=== PATIENT | male | born 1965 | race Caucasian/White ===

== ENCOUNTER 2016-07-24 08:14 | Day surgery (SDC) | payer OTHER ==
[2016-07-23 09:37] VITALS: BMI 31.6
[2016-07-24 08:31] VITALS: TEMP 96.9
[2016-07-24] MEDS ORDERED: LIDOCAINE 1% 20 ML VIAL (10MG/ML) FOR IV START INTRADERMA ONE (08:42)
[2016-07-24] MEDS ORDERED: LACTATED RINGERS 1,000 ML IV SCH (09:00)
[2016-07-24] MEDS ORDERED: MIDAZOLAM 2 MG/2 ML VIAL ONE (09:30)
[2016-07-24] MEDS ORDERED: BUPIVACAINE (PF) 0.5% 30 ML VIAL ONE (09:30)
[2016-07-24] MEDS ORDERED: TRIAMCINOLONE ACETONIDE 40 MG/ML 1 ML VIAL ONE (09:30)
[2016-07-24] MEDS ORDERED: fentaNYL (PF) 50 MCG/ML 2 ML AMP ONE (09:30)
--- NOTE | 2016-07-24 09:45 | P.PCN ---
Date of Procedure: 07/24/16 Surgeon: Escobar Jenkins Pathology: none sent Condition: stable Disposition: PACU Description of Procedure: Pre-operative diagnosis: 1- Bilateral occipital neuralgia Post Operative Diagnosis: 1- Bilateral occipital neuralgia Procedure: Bilateral occipital nerve block ANESTHESIA: Local with 1% lidocaine; conscious sedation EBL: Minimal PROCEDURE INDICATION: The patient with neck pain and headache secondary to bilateral occipital neuralgia and has failed conservative management. No use of blood thinners today. PROCEDURE DESCRIPTION / TECHNIQUE: The patient was seen and identified in the preoperative area. Risks, benefits, complications, and alternatives were discussed with the patient (including but not limited to incomplete pain relief , bleeding, infection, nerve damage, and allergies to medications), the patient agreed to proceed with the procedure and signed the consent after all questions were answered. Patient was taken to the OR and time out was completed to verify proper patient , position, laterality of pain, and allergies. Pt was placed in the sitting position. IV was started. Vital signs remained stable throughout the procedure. Conscious sedation was used during the procedure to decrease patients anxiety. The cervical area and bilateral occipital areas were prepped in the usual sterile fashion. Critical pause was taken. The right occipital ridge was palpated and was then accessed with a 25 G needle. Then after negative aspiration, 3 ml of the total 6 ml block solution containing 4 ml of PF Bupivacaine 0.5% and Kenalog 80 mg was injected. Needle was withdrawn intact. The entire procedure was then repeated on the left side exactly as above. Needle was withdrawn intact and there were no acute complications. DISPOSITION / PLANS: The patient was placed in a supine position and transferred to the recovery area in a stable condition for observation and was discharged from the recovery room after meeting discharge criteria. Home discharge instructions given to the patient by the staff. The patient was reexamined prior to discharge and there were no issues. The patient will schedule a follow up injection in approximately 4-6 weeks.
[2016-07-24] MEDS ORDERED: IV FLUID CONTINUATION 1,000 ML IV ONE (09:47)
[2016-07-24 09:50] VITALS: RESP 16
[2016-07-24 10:07] VITALS: BP 127/72; PULSE 80
== END 2016-07-24 10:31 | disposition home or self-care (01) ==
LOC: ORPAIN 08:14
PROVIDERS: ATTEND Anesthesiology
DX: M54.81 Occipital neuralgia (principal); G89.29 Other chronic pain; Z79.1 Long term (current) use of non-steroidal anti-inflammatories (NSAID); Z79.899 Other long term (current) drug therapy
CPT/HCPCS: 64405; J2250; J3301; J3010

== ENCOUNTER 2017-02-14 09:45 | Emergency (ER) | payer MEDICARE, OTHER ==
[2017-02-14 09:55] VITALS: BP 164/86; PULSE 70; RESP 18; TEMP 97.4
[2017-02-14] MEDS ORDERED: predniSONE 50 MG TAB PO STA (10:23)
[2017-02-14] MEDS ORDERED: diphenhydrAMINE 25 MG CAP PO STA (10:23)
[2017-02-14] MEDS ORDERED: FAMOTIDINE 20 MG TAB PO STA (10:23)
--- NOTE | 2017-02-14 10:30 | ED ---
Skin/Abscess/FB HPI - General Chief complaint: Skin/Abscess/Foreign Body Stated complaint: allergic reaction Time Seen by Provider: 02/14/17 10:00 Source: patient, RN notes reviewed Mode of arrival: ambulatory Limitations: no limitations - History of Present Illness Initial comments: This is a 51-year-old male who states she's had an erythematous itchy rash for the past 3 days. He states was placed back on his neck is extremities and chest. He does not recall any exposure to medications Social detergents ever softeners or any foreign substances. He has no prior history of this. He states his been so bad that he keeps him up at night now. He believes feeling of hours sleep last night. Additionally he states he had an upset stomach since this occurred. He denies any chest pain shortness breath fevers chills nausea vomiting sweats or other symptoms. He does state he recently but new [employer] clothing but he has washed them. MD complaint: rash - Related Data Home Medications Medication Instructions Recorded Confirmed ALPRAZolam [Xanax] 0.5 mg PO BID 05/21/16 07/24/16 Baclofen [Lioresal] 10 mg PO TID 05/21/16 07/24/16 Ibuprofen [Motrin] 600 mg PO BID 05/21/16 07/24/16 Meclizine [Antivert] 25 mg PO BID PRN 05/21/16 07/24/16 Previous Rx's Medication Instructions Recorded Famotidine [Pepcid] 20 mg PO BID #10 tablet 02/14/17 hydrOXYzine HCL [Atarax] 25 mg PO TID PRN #15 tab 02/14/17 predniSONE 20 mg PO BID #10 tab 02/14/17 Allergies Allergy/AdvReac Type Severity Reaction Status Date / Time No Known Allergies Allergy Verified 02/14/17 09:55 Review of Systems ROS Statement: Those systems with pertinent positive or pertinent negative responses have been documented in the HPI. ROS Other: All systems not noted in ROS Statement are negative. Past Medical History Additional Past Medical History / Comment(s): hx injury to neck- experiencing constant headache, neck, lt shoulder pain with numbness to lt hand and pain lower back, diverticulitis, growth on parotid gland History of Any Multi-Drug Resistant Organisms: None Reported Past Surgical History: Bowel Resection Additional Past Surgical History / Comment(s): bowel resection with colostomy and then reversal of colostomy Past Anesthesia/Blood Transfusion Reactions: No Reported Reaction Past Psychological History: No Psychological Hx Reported Smoking Status: Current some day smoker Past Alcohol Use History: Occasional Past Drug Use History: Marijuana - Past Family History Mother Family Medical History: Cancer Additional Family Medical History / Comment(s): liver General Exam - General Exam Comments Initial Comments: This a well-developed well-nourished awake alert oriented 3 male Limitations: no limitations General appearance: alert, in no apparent distress Head exam: Present: atraumatic, normocephalic, normal inspection Eye exam: Present: normal appearance, PERRL, EOMI. Absent: scleral icterus, conjunctival injection, periorbital swelling ENT exam: Present: normal exam, mucous membranes moist Neck exam: Present: normal inspection, full ROM, other (No stridor JVD or bruits ). Absent: tenderness, meningismus, lymphadenopathy Respiratory exam: Present: normal lung sounds bilaterally. Absent: respiratory distress, wheezes, rales, rhonchi, stridor Cardiovascular Exam: Present: regular rate, normal rhythm, normal heart sounds. Absent: systolic murmur, diastolic murmur, rubs, gallop, clicks GI/Abdominal exam: Present: soft, normal bowel sounds. Absent: distended, tenderness, guarding, rebound, rigid Extremities exam: Present: full ROM, normal capillary refill. Absent: tenderness Back exam: Absent: tenderness Neurological exam: Present: alert, oriented X3, CN II-XII intact Psychiatric exam: Present: normal affect, normal mood Skin exam: Present: warm, dry, intact, rash, other (Hive-like reaction to the face and scalp neck chest and extremities.) Course Vital Signs 02/14/17 09:52 Temperature 97.4 F L Pulse Rate 70 Respiratory 18 Rate Blood Pressure 164/86 O2 Sat by Pulse 99 Oximetry Medical Decision Making - Medical Decision Making The presentation is consistent with ALLERGIC reaction to an unknown etiology. Patient will be placed on appropriate medications he was cautioned about exposure to heat. He is follow-up with his doctor and return when necessary Disposition Clinical Impression: Hives of unknown origin Disposition: HOME SELF-CARE Condition: Good Instructions: Urticaria (ED) Additional Instructions: Cool compresses to affected areas, [id number] Benadryl 25 mg every 6 hours as needed. Prescriptions: Famotidine [Pepcid] 20 mg PO BID #10 tablet hydrOXYzine HCL [Atarax] 25 mg PO TID PRN #15 tab PRN Reason: Itching predniSONE 20 mg PO BID #10 tab Referrals: Nonstaff,Physician [Primary Care Provider] - 1-2 days
== END 2017-02-14 10:35 | disposition home or self-care (01) ==
LOC: EC 09:45
DX: L50.9 Urticaria, unspecified (principal); F17.200 Nicotine dependence, unspecified, uncomplicated; Z79.1 Long term (current) use of non-steroidal anti-inflammatories (NSAID); Z79.899 Other long term (current) drug therapy
CPT/HCPCS: 99283; J7512

== ENCOUNTER 2017-04-27 14:27 | Emergency (ER) | payer MEDICARE, OTHER ==
[2017-04-27 14:36] VITALS: BP 145/85; RESP 20; TEMP 98.1
[2017-04-27] MEDS ORDERED: FAMOTIDINE 20 MG TAB PO STA (14:53)
[2017-04-27] MEDS ORDERED: predniSONE 20 MG TAB PO STA (14:53)
[2017-04-27] MEDS ORDERED: ALBUTEROL NEBULIZED 2.5 MG/3 ML INHALATION STA (14:53)
[2017-04-27] MEDS ORDERED: hydrOXYzine HCL 25 MG TAB PO STA (14:54)
--- NOTE | 2017-04-27 15:00 | ED ---
Skin/Abscess/FB HPI - General Chief complaint: Skin/Abscess/Foreign Body Stated complaint: allergies Time Seen by Provider: 04/27/17 14:49 Source: patient, RN notes reviewed Mode of arrival: ambulatory Limitations: no limitations - History of Present Illness Initial comments: 52-year-old male presents emergency Department chief complaint of urticaria. Patient states he did have his ongoing issue and which she suggested have ALLERGY testing but he states that he does not want to have the skin ALLERGY testing because he fears that he will have worse reactions. Patient states his been seen in emergency department for this in the past given his medication which helped. States more recently his been having issues raised that increase hives states occasionally has shortness of breath. He states is nonacute reaction states this is been going on for weeks. Patient denies any new medications, soaps, lotions or detergents. Patient states he currently taking Zyrtec and hydrocortisone cream - Related Data Home Medications Medication Instructions Recorded Confirmed ALPRAZolam [Xanax] 0.5 mg PO BID 05/21/16 07/24/16 Baclofen [Lioresal] 10 mg PO TID 05/21/16 07/24/16 Ibuprofen [Motrin] 600 mg PO BID 05/21/16 07/24/16 Meclizine [Antivert] 25 mg PO BID PRN 05/21/16 07/24/16 Previous Rx's Medication Instructions Recorded Famotidine [Pepcid] 20 mg PO BID #10 tablet 02/14/17 hydrOXYzine HCL [Atarax] 25 mg PO TID PRN #15 tab 02/14/17 predniSONE 20 mg PO BID #10 tab 02/14/17 Famotidine [Pepcid] 20 mg PO BID #30 tablet 04/27/17 hydrOXYzine HCL [Atarax] 25 mg PO TID PRN #15 tab 04/27/17 predniSONE 50 mg PO DAILY #5 tab 04/27/17 Allergies Allergy/AdvReac Type Severity Reaction Status Date / Time No Known Allergies Allergy Verified 04/27/17 14:36 Review of Systems ROS Statement: Those systems with pertinent positive or pertinent negative responses have been documented in the HPI. ROS Other: All systems not noted in ROS Statement are negative. Past Medical History Additional Past Medical History / Comment(s): hx injury to neck- experiencing constant headache, neck, lt shoulder pain with numbness to lt hand and pain lower back, diverticulitis, growth on parotid gland History of Any Multi-Drug Resistant Organisms: None Reported Past Surgical History: Bowel Resection Additional Past Surgical History / Comment(s): bowel resection with colostomy and then reversal of colostomy Past Anesthesia/Blood Transfusion Reactions: No Reported Reaction Past Psychological History: No Psychological Hx Reported Smoking Status: Current every day smoker Past Alcohol Use History: Occasional Past Drug Use History: Marijuana - Past Family History Mother Family Medical History: Cancer Additional Family Medical History / Comment(s): liver General Exam Limitations: no limitations General appearance: alert, in no apparent distress Head exam: Present: atraumatic, normocephalic, normal inspection Eye exam: Present: normal appearance, PERRL, EOMI. Absent: scleral icterus, conjunctival injection, periorbital swelling ENT exam: Present: normal exam, normal oropharynx, mucous membranes moist, TM's normal bilaterally, normal external ear exam Neck exam: Present: normal inspection, full ROM. Absent: tenderness, meningismus, lymphadenopathy Respiratory exam: Present: wheezes (faint wheeze). Absent: normal lung sounds bilaterally, respiratory distress, rales, rhonchi, stridor Cardiovascular Exam: Present: regular rate, normal rhythm, normal heart sounds. Absent: systolic murmur, diastolic murmur, rubs, gallop, clicks Neurological exam: Present: alert, oriented X3, CN II-XII intact Skin exam: Present: warm, dry, intact, normal color, rash, urticaria Course Vital Signs 04/27/17 14:34 Temperature 98.1 F Pulse Rate 86 Respiratory 20 Rate Blood Pressure 145/85 O2 Sat by Pulse 98 Oximetry Medical Decision Making - Medical Decision Making 52-year-old male presented for ALLERGIC reaction. Patient has a chronic urticaria issue. I did explain to him he can have blood ALLERGY testing with his primary care physician or collar tailor. He states he will follow up for this. Patient is no acute distress. He was given a breathing treatment, steroids, Atarax and Pepcid. Patient be discharged with Atarax and Pepcid to continue with his hydrocortisone cream. Return parameters discussed. Disposition Clinical Impression: Urticaria Disposition: HOME SELF-CARE Condition: Stable Instructions: Urticaria (ED) Additional Instructions: Please return to the Emergency Department if symptoms worsen or any other concerns. Prescriptions: Famotidine [Pepcid] 20 mg PO BID #30 tablet hydrOXYzine HCL [Atarax] 25 mg PO TID PRN #15 tab PRN Reason: Itching predniSONE 50 mg PO DAILY #5 tab Referrals: Courtney Delgado MD [Primary Care Provider] - 1-2 days Time of Disposition: 15:00
[2017-04-27 15:39] VITALS: PULSE 90
== END 2017-04-27 15:50 | disposition home or self-care (01) ==
LOC: EC 14:27
DX: L50.9 Urticaria, unspecified (principal); F17.200 Nicotine dependence, unspecified, uncomplicated; Z79.1 Long term (current) use of non-steroidal anti-inflammatories (NSAID); Z79.899 Other long term (current) drug therapy
CPT/HCPCS: 94640; 99283; J7512

== ENCOUNTER 2017-07-22 03:14 | Emergency (ER) | payer MEDICARE, OTHER ==
[2017-07-22 03:21] VITALS: RESP 18; TEMP 99.3
[2017-07-22] MEDS ORDERED: methylPREDNISolone SOD SUCCI 125 MG/2 ML VIAL IM ONE (03:39)
--- NOTE | 2017-07-22 03:43 | ED ---
General Adult HPI - General Chief complaint: Recheck/Abnormal Lab/Rx Stated complaint: hives Time Seen by Provider: 07/22/17 03:34 Source: patient, RN notes reviewed Mode of arrival: ambulatory Limitations: no limitations - History of Present Illness Initial comments: Patient is a pleasant 52-year-old male presenting to the emergency Department with rash. Onset was a couple of days ago. Patient has had similar symptoms multiple times previously over the past several months. Patient has been on steroids 3 or 4 times. Last steroids was around 6 weeks ago. Patient states he did have some palpitations earlier today that he attributes to being miserable and not been able to sleep. No chest pain. No difficulty in breathing. Patient has seen several physicians for this and has had blood work. Patient has also seen an entry level automotive technician. - Related Data Home Medications Medication Instructions Recorded Confirmed ALPRAZolam [Xanax] 0.5 mg PO BID 05/21/16 07/24/16 Baclofen [Lioresal] 10 mg PO TID 05/21/16 07/24/16 Ibuprofen [Motrin] 600 mg PO BID 05/21/16 07/24/16 Meclizine [Antivert] 25 mg PO BID PRN 05/21/16 07/24/16 Previous Rx's Medication Instructions Recorded Famotidine [Pepcid] 20 mg PO BID #10 tablet 02/14/17 hydrOXYzine HCL [Atarax] 25 mg PO TID PRN #15 tab 02/14/17 predniSONE 20 mg PO BID #10 tab 02/14/17 Famotidine [Pepcid] 20 mg PO BID #30 tablet 04/27/17 hydrOXYzine HCL [Atarax] 25 mg PO TID PRN #15 tab 04/27/17 predniSONE 50 mg PO DAILY #5 tab 04/27/17 methylPREDNISolone Dose Pack 24 mg PO DAILY #1 tab 07/22/17 [Medrol Dose Pack] Allergies Allergy/AdvReac Type Severity Reaction Status Date / Time No Known Allergies Allergy Verified 07/22/17 03:21 Review of Systems ROS Statement: Those systems with pertinent positive or pertinent negative responses have been documented in the HPI. ROS Other: All systems not noted in ROS Statement are negative. Constitutional: Denies: fever Eyes: Denies: eye pain ENT: Denies: ear pain Respiratory: Denies: cough, dyspnea Cardiovascular: Reports: palpitations (Resolved). Denies: chest pain Endocrine: Denies: fatigue Gastrointestinal: Denies: abdominal pain Genitourinary: Denies: dysuria Musculoskeletal: Denies: back pain Skin: Reports: rash, pruritus Past Medical History Additional Past Medical History / Comment(s): hx injury to neck- experiencing constant headache, neck, lt shoulder pain with numbness to lt hand and pain lower back, diverticulitis, growth on parotid gland, urticaria. History of Any Multi-Drug Resistant Organisms: None Reported Past Surgical History: Bowel Resection Additional Past Surgical History / Comment(s): bowel resection with colostomy and then reversal of colostomy, Past Anesthesia/Blood Transfusion Reactions: No Reported Reaction Past Psychological History: No Psychological Hx Reported Smoking Status: Current every day smoker Past Alcohol Use History: Occasional Past Drug Use History: Marijuana - Past Family History Mother Family Medical History: Cancer Additional Family Medical History / Comment(s): liver General Exam Limitations: no limitations General appearance: alert, in no apparent distress Head exam: Present: atraumatic Eye exam: Present: normal appearance ENT exam: Present: normal oropharynx Respiratory exam: Present: normal lung sounds bilaterally Cardiovascular Exam: Present: regular rate, normal rhythm GI/Abdominal exam: Present: soft. Absent: tenderness Neurological exam: Present: alert Psychiatric exam: Present: normal affect, normal mood Skin exam: Present: urticaria (Patient has diffuse urticarial rash) Course Vital Signs 07/22/17 03:17 Temperature 99.3 F Pulse Rate 114 H Respiratory 18 Rate Blood Pressure 139/80 O2 Sat by Pulse 97 Oximetry EKG Findings - EKG Comments: EKG Findings:: Normal sinus rhythm 92. SC 160. QRS 106. QT 348. QTC 4:30 P left axis. Incomplete right bundle-branch block. No acute ST change. Disposition Clinical Impression: Urticaria Disposition: HOME SELF-CARE Condition: Stable Instructions: Urticaria (ED) Additional Instructions: Please follow-up with your doctor and entry level automotive technician in the next day or 2 for recheck. Return for difficulty in breathing, swelling of the throat or tongue or mouth, worsening symptoms or other concerns. Continue Zyrtec and Pepcid. Prescriptions: methylPREDNISolone Dose Pack [Medrol Dose Pack] 24 mg PO DAILY #1 tab Referrals: Courtney Delgado MD [Primary Care Provider] - 1-2 days Time of Disposition: 03:43
[2017-07-22 03:58] VITALS: BP 146/78; PULSE 83
== END 2017-07-22 03:58 | disposition home or self-care (01) ==
LOC: EC 03:14
DX: L50.9 Urticaria, unspecified (principal); R00.2 Palpitations; F17.200 Nicotine dependence, unspecified, uncomplicated; Z79.899 Other long term (current) drug therapy
CPT/HCPCS: 93005; 99283; 96372; J2930

== ENCOUNTER 2017-09-08 11:08 | Emergency (ER) | payer OTHER ==
--- NOTE | 2017-09-08 11:43 | ED ---
General Adult HPI - General Chief complaint: Skin/Abscess/Foreign Body Stated complaint: Hives Time Seen by Provider: 09/08/17 11:19 Source: patient, RN notes reviewed Mode of arrival: ambulatory Limitations: no limitations - History of Present Illness Initial comments: 52-year-old male presents to the emergency department for chief complaint of hives. Patient says this has been ongoing for the past 8 months. He has seen an healthcare management consultant and was told he is not ALLERGIC to anything. He has not seen a buckle wire inserter. Patient has been taking Zyrtec and Pepcid. Patient had an ALLERGY shot about 6 weeks ago and would like another. Patient discussed following up with a buckle wire inserter as well as an healthcare management consultant. Patient states he has also had some congestion along with the hives. Patient denies any swelling of the lips or throat. Patient denies any shortness of breath. Patient denies any recent fevers. - Related Data Home Medications Medication Instructions Recorded Confirmed ALPRAZolam [Xanax] 0.5 mg PO BID 05/21/16 07/24/16 Baclofen [Lioresal] 10 mg PO TID 05/21/16 07/24/16 Ibuprofen [Motrin] 600 mg PO BID 05/21/16 07/24/16 Meclizine [Antivert] 25 mg PO BID PRN 05/21/16 07/24/16 Previous Rx's Medication Instructions Recorded Famotidine [Pepcid] 20 mg PO BID #10 tablet 02/14/17 hydrOXYzine HCL [Atarax] 25 mg PO TID PRN #15 tab 02/14/17 predniSONE 20 mg PO BID #10 tab 02/14/17 Famotidine [Pepcid] 20 mg PO BID #30 tablet 04/27/17 hydrOXYzine HCL [Atarax] 25 mg PO TID PRN #15 tab 04/27/17 predniSONE 50 mg PO DAILY #5 tab 04/27/17 methylPREDNISolone Dose Pack 24 mg PO DAILY #1 tab 07/22/17 [Medrol Dose Pack] hydrOXYzine HCL [Atarax] 25 mg PO TID PRN #20 tab 09/08/17 predniSONE 50 mg PO DAILY #5 tablet 09/08/17 Allergies Allergy/AdvReac Type Severity Reaction Status Date / Time No Known Allergies Allergy Verified 09/08/17 11:13 Review of Systems ROS Statement: Those systems with pertinent positive or pertinent negative responses have been documented in the HPI. ROS Other: All systems not noted in ROS Statement are negative. Past Medical History Additional Past Medical History / Comment(s): hx injury to neck- experiencing constant headache, neck, lt shoulder pain with numbness to lt hand and pain lower back, diverticulitis, growth on parotid gland, urticaria. diverticulitis History of Any Multi-Drug Resistant Organisms: None Reported Past Surgical History: Bowel Resection Additional Past Surgical History / Comment(s): bowel resection with colostomy and then reversal of colostomy, Past Anesthesia/Blood Transfusion Reactions: No Reported Reaction Past Psychological History: No Psychological Hx Reported Smoking Status: Current every day smoker Past Alcohol Use History: Occasional Past Drug Use History: Marijuana - Past Family History Mother Family Medical History: Cancer Additional Family Medical History / Comment(s): liver General Exam Limitations: no limitations Head exam: Present: atraumatic, normocephalic, normal inspection ENT exam: Present: normal exam, normal oropharynx, mucous membranes moist, other (congestion noted) Neck exam: Present: normal inspection Respiratory exam: Present: normal lung sounds bilaterally. Absent: respiratory distress, wheezes, rales, rhonchi, stridor Cardiovascular Exam: Present: regular rate, normal rhythm, normal heart sounds. Absent: systolic murmur, diastolic murmur, rubs, gallop, clicks Skin exam: Present: warm, dry, rash, urticaria, other (Erythematous plaques resembling Urticaria present on the limbs and torso.). Absent: cyanosis, diaphoretic Course Vital Signs 09/08/17 11:13 Temperature 97.3 F L Pulse Rate 77 Respiratory 96 H Rate Blood Pressure 127/68 O2 Sat by Pulse 95 Oximetry Medical Decision Making - Medical Decision Making 52-year-old male presents to the emergency department for a chief complaint of urticaria. Patient states this has been ongoing for the past 8 months and has been accompanied by congestion. Denies any swelling of the lips or throat or shortness of breath. Patient has seen an healthcare management consultant and had a negative exam. He was told he is not ALLERGIC to anything. Patient has not yet seen a buckle wire inserter for this. Patient last had a shot of Solu-Medrol about 6 weeks ago. Patient states this helped him and he would like another as well as an oral course of prednisone. Vitals are within normal limits and as follows: Temp 97.3. pulse 77, BP 127/68, pulse ox 95. Patient was given a shot of Solu- Medrol in the emergency department. He was given a prescription for Atarax and prednisone. He is to follow up with dermatology and or healthcare management consultant/primary care provider in one to 2 days. He will return to the emergency Department if he notices any swelling of the lips or throat or has difficulty breathing. Disposition Clinical Impression: Urticaria Disposition: HOME SELF-CARE Condition: Good Instructions: Urticaria (ED) Additional Instructions: Please follow up with healthcare management consultant and buckle wire inserter in one to 2 days. Please take steroids as directed as well as Atarax. Please return to the Emergency Department if symptoms worsen or do not improve. Prescriptions: hydrOXYzine HCL [Atarax] 25 mg PO TID PRN #20 tab PRN Reason: Itching predniSONE 50 mg PO DAILY #5 tablet Referrals: Courtney Delgado MD [Primary Care Provider] - 1-2 days Erlin Jenkins MD [STAFF PHYSICIAN] - 1-2 days
[2017-09-08] MEDS ORDERED: methylPREDNISolone SOD SUCCI 125 MG/2 ML VIAL IM ONE (11:47)
[2017-09-08 12:15] VITALS: BP 122/68; PULSE 80; RESP 18; TEMP 98
== END 2017-09-08 12:15 | disposition home or self-care (01) ==
LOC: EC 11:08
DX: L50.9 Urticaria, unspecified (principal); R09.81 Nasal congestion; F17.200 Nicotine dependence, unspecified, uncomplicated; Z79.1 Long term (current) use of non-steroidal anti-inflammatories (NSAID); Z79.899 Other long term (current) drug therapy; Z87.39 Personal history of other diseases of the musculoskeletal system and connective tissue
CPT/HCPCS: 99283; 96372; J2930

== ENCOUNTER → 2022-09-30 | Outpatient (CLI) | payer OTHER ==
[2022-09-30 20:13] LABS: HGB 13.6 g/dL (13.0-17.0); MCH 38.1 pg (27.0-32.0); MCHC 35.8 g/dL (32.0-37.0); MCV 106.4 fL (80.0-97.0); Mean Platelet Volume 10.3 fL (9.5-12.2); NRBC Per 100 WBC 0 /100 WBCS (0.0-0.0); Platelet Count 122 X 10*3/uL (140-440); RBC 3.57 X 10*6/uL (4.40-5.60); RDW 16.3 % (11.5-14.5); WBC 6.46 X 10*3/uL (4.50-10.00)
[2022-09-30 21:01] LABS: African American GFR (CKD) 113.3 (60.0-200.0); Albumin 2.9 g/dL (3.8-4.9); Albumin/Globulin Ratio 0.71 (1.60-3.17); Anion Gap 10.6 mmol/L (10.00-18.00); BUN/Creat Ratio 10.88 Ratio (12.00-20.00); Blood Urea Nitrogen 8.7 mg/dL (9.0-27.0); Carbon Dioxide 20.4 mmol/L (20.0-27.5); Globulin 4.1 g/dL (1.6-3.3); Non-African American GFR(CKD) 97.8 (60.0-200.0); Potassium 3.8 mmol/L (3.5-5.5)
== END | disposition home or self-care (01) ==
LOC: LABWHC1 13:25
PROVIDERS: ATTEND Internal Medicine Gastroenterology
DX: K76.9 Liver disease, unspecified (principal)
CPT/HCPCS: 36415; 80053; 82105; 85027

== ENCOUNTER → 2022-11-13 | Outpatient (CLI) | payer OTHER ==
[~2022-11-13] MED LIST: OMALIZUMAB 150 MG VIAL SQ NR
[2022-11-13 13:54] VITALS: BP 123/76; PULSE 54; RESP 15; TEMP 97.5
== END ==
LOC: PROCWHC3 13:20
PROVIDERS: ATTEND Physician Assistant
DX: L50.1 Idiopathic urticaria (principal)
CPT/HCPCS: 96372; J2357

== ENCOUNTER → 2022-11-17 | Outpatient (CLI) | payer OTHER ==
[2022-11-17 22:51] LABS: ALT 24 U/L (10-49); AST 57 U/L (14-35); Albumin 2.7 d/dL (3.8-4.9); Albumin/Globulin Ratio 0.66 Ratio (1.60-3.17); Alkaline Phosphatase 109 U/L (41-126); BUN/Creat Ratio 11.25 Ratio (12.00-20.00); Calcium 9.2 mg/dL (8.7-10.3); Carbon Dioxide 21.9 mmol/L (21.6-31.8); Chloride 108 mmol/L (96-109); Globulin 4.1 d/dL (1.6-3.3); Glucose 115 mg/dL (70-110); Potassium 4.3 mmol/L (3.5-5.5); Sodium 136 mmol/L (135-145); Total Bilirubin 4.7 mg/dL (0.3-1.2); Total Protein 6.8 d/dL (6.2-8.2)
[2022-11-17 23:39] LABS: HCT 33.7 % (39.6-50.0); HGB 11.6 d/dL (12.0-15.0); MCH 38.3 pg (27.0-32.0); MCHC 34.4 d/dL (32.0-37.0); MCV 111.2 FL (80.0-97.0); Mean Platelet Volume 11.2 FL (9.5-12.2); NRBC Per 100 WBC 0 X 10*3/uL (0.00-0.01); Platelet Count 109 X 10*3/uL (140-440); RBC 3.03 X 10*6/uL (4.40-5.60); RDW 17.2 % (11.5-14.5); WBC 7.06 X 10*3/uL (4.50-10.00)
[2022-11-18 02:30] LABS: INR 1.51 sec (0.93-1.11); Prothrombin Time 16.8 sec (9.9-11.9)
== END | disposition home or self-care (01) ==
LOC: LABWHC1 13:48
PROVIDERS: ATTEND Internal Medicine Gastroenterology
DX: K70.30 Alcoholic cirrhosis of liver without ascites (principal)
CPT/HCPCS: 36415; 80053; 85027; 85610

== ENCOUNTER → 2023-02-12 | Outpatient (CLI) | payer OTHER ==
[2023-02-12 21:08] LABS: ALT 28 U/L (10-49); AST 62 U/L (14-35); Albumin 2.9 d/dL (3.8-4.9); Albumin/Globulin Ratio 0.69 Ratio (1.60-3.17); Alkaline Phosphatase 112 U/L (41-126); BUN/Creat Ratio 10.56 Ratio (12.00-20.00); Blood Urea Nitrogen 9.5 mg/dL (9.0-27.0); Calcium 9.2 mg/dL (8.7-10.3); Carbon Dioxide 22.9 mmol/L (21.6-31.8); Chloride 106 mmol/L (96-109); Globulin 4.2 d/dL (1.6-3.3); Glucose 92 mg/dL (70-110); Potassium 4.5 mmol/L (3.5-5.5); Sodium 137 mmol/L (135-145); Total Bilirubin 6.6 mg/dL (0.3-1.2); Total Protein 7.1 d/dL (6.2-8.2)
[2023-02-12 22:50] LABS: HCT 36.7 % (39.6-50.0); HGB 13.1 d/dL (13.0-17.0); MCH 39.1 pg (27.0-32.0); MCHC 35.7 d/dL (32.0-37.0); MCV 109.6 FL (80.0-97.0); Mean Platelet Volume 11.5 FL (9.5-12.2); NRBC Per 100 WBC 0 X 10*3/uL (0.00-0.01); Platelet Count 114 X 10*3/uL (140-440); RBC 3.35 X 10*6/uL (4.40-5.60); RDW 16.2 % (11.5-14.5); WBC 8.27 X 10*3/uL (4.50-10.00)
== END | disposition home or self-care (01) ==
LOC: LABWHC1 12:10
PROVIDERS: ATTEND Internal Medicine Gastroenterology
DX: K70.30 Alcoholic cirrhosis of liver without ascites (principal)
CPT/HCPCS: 36415; 80053; 85027

== ENCOUNTER → 2023-05-04 | Outpatient (CLI) | payer OTHER ==
[2023-05-04 20:57] LABS: HCT 34.8 % (39.6-50.0); HGB 12.1 g/dL (13.0-17.0); MCH 38.3 pg (27.0-32.0); MCHC 34.8 g/dL (32.0-37.0); MCV 110.1 FL (80.0-97.0); Mean Platelet Volume 10.5 FL (9.5-12.2); NRBC Per 100 WBC 0 X 10*3/uL (0.00-0.01); Platelet Count 117 X 10*3/uL (140-440); RBC 3.16 X 10*6/uL (4.40-5.60); WBC 6.93 X 10*3/uL (4.50-10.00)
[2023-05-04 22:26] LABS: ALT 23 U/L (10-49); AST 50 U/L (14-35); Albumin 2.8 g/dL (3.8-4.9); Albumin/Globulin Ratio 0.72 Ratio (1.60-3.17); Alkaline Phosphatase 117 U/L (41-126); BUN/Creat Ratio 9.64 Ratio (12.00-20.00); Blood Urea Nitrogen 10.6 mg/dL (9.0-27.0); Calcium 9.1 mg/dL (8.7-10.3); Carbon Dioxide 26.9 mmol/L (21.6-31.8); Chloride 99 mmol/L (96-109); Globulin 3.9 g/dL (1.6-3.3); Glucose 202 mg/dL (70-110); Potassium 3.6 mmol/L (3.5-5.5); Sodium 133 mmol/L (135-145); Total Protein 6.7 g/dL (6.2-8.2)
== END | disposition home or self-care (01) ==
LOC: LABWHC1 13:33
PROVIDERS: ATTEND Nurse Practitioner Family
DX: K70.30 Alcoholic cirrhosis of liver without ascites (principal); K76.9 Liver disease, unspecified
CPT/HCPCS: 36415; 80053; 82105; 85027

== ENCOUNTER → 2023-08-06 | Outpatient (CLI) | payer OTHER ==
[2023-08-06 18:15] LABS: HCT 34.1 % (39.6-50.0); HGB 12.1 g/dL (13.0-17.0); MCH 38.8 pg (27.0-32.0); MCHC 35.5 g/dL (32.0-37.0); MCV 109.3 FL (80.0-97.0); Mean Platelet Volume 10.5 FL (9.5-12.2); NRBC Per 100 WBC 0 X 10*3/uL (0.00-0.01); Platelet Count 133 X 10*3/uL (140-440); RBC 3.12 X 10*6/uL (4.40-5.60); RDW 17.2 % (11.5-14.5); WBC 7.81 X 10*3/uL (4.50-10.00)
[2023-08-06 19:15] LABS: ALT 24 U/L (10-49); AST 55 U/L (14-35); Albumin 2.9 g/dL (3.8-4.9); Albumin/Globulin Ratio 0.66 Ratio (1.60-3.17); Alkaline Phosphatase 99 U/L (41-126); Blood Urea Nitrogen 10.8 mg/dL (9.0-27.0); Calcium 9.4 mg/dL (8.7-10.3); Carbon Dioxide 23.3 mmol/L (21.6-31.8); Chloride 105 mmol/L (96-109); Globulin 4.4 g/dL (1.6-3.3); Glucose 105 mg/dL (70-110); Potassium 4.1 mmol/L (3.5-5.5); Sodium 137 mmol/L (135-145); Total Protein 7.3 g/dL (6.2-8.2)
== END | disposition home or self-care (01) ==
LOC: LABWHC1 14:41
PROVIDERS: ATTEND Internal Medicine Gastroenterology
DX: K70.30 Alcoholic cirrhosis of liver without ascites (principal)
CPT/HCPCS: 36415; 80053; 85027

== ENCOUNTER 2023-12-14 00:05 | Emergency (ER) | payer OTHER ==
[2023-12-14] MEDS ORDERED: NOREPINEPHRINE 32 MG in SODIUM CHLORIDE 0.9% 218 ML IV ONE (00:09)
[2023-12-14] MEDS: NOREPINEPHRINE 32 MG in SODIUM CHLORIDE 0.9% 218 ML IV ONE (00:16)
[2023-12-14 00:24] LABS: Glucose,Whole Blood 78 mg/dL (70-110)
[2023-12-14 00:31] LABS: HCT 31.1 % (39.0-53.0); HGB 9.2 gm/dL (13.0-17.5); Hypochromasia Marked; MCH 37.9 pg (25.0-35.0); MCHC 29.6 g/dL (31.0-37.0); Macrocytosis Marked; Mean Platelet Volume 8.8; Platelet Count 110 k/uL (150-450); RBC 2.43 m/uL (4.30-5.90); RDW 15.7 % (11.5-15.5); WBC 3.7 k/uL (3.8-10.6)
[2023-12-14 00:41] LABS: MCV 128.1 fL (80.0-100.0)
--- NOTE | 2023-12-14 00:42 | XR ---
EXAM: XR Chest, 1 View CLINICAL HISTORY: ITS.REASON XR Reason: cardiac arrest TECHNIQUE: Frontal view of the chest. COMPARISON: None. FINDINGS: A large EKG pad overlies the central chest. Underexpanded lungs. Lungs: Bronchial wall thickening and left perihilar interstitial opacities. Pleural space: Likely a small left pleural effusion present with loss of costophrenic sulcus.. No obvious pneumothorax. Heart: No cardiomegaly. Mediastinum: Widening of the superior mediastinum. Bones/joints: No displaced acute fracture identified... IMPRESSION: Limited exam. Low lung volumes. Nonspecific widening of the superior mediastinum. Bilateral bronchial wall thickening and left perihilar interstitial edema/infiltrates. .
--- NOTE | 2023-12-14 00:45 | ED ---
General Adult HPI - General Chief complaint: Cardiac Arrest/CPR Stated complaint: Cardiac Arrest Time Seen by Provider: 12/14/23 00:08 Source: family, EMS, RN notes reviewed, old records reviewed Limitations: altered mental status - History of Present Illness Initial comments: 58-year-old male presenting as out of hospital cardiac arrest. Patient was found by paramedics on the toilet unresponsive. When he was moved it was noted that he was in agonal respirations and was pulseless. He was a PEA arrest he was intubated by paramedics CPR was initiated. He had return of pulses with an episode of PEA requiring CPR during transport. Upon arrival the patient is intubated with a faint pulse. His pupils are fixed and dilated. I did discuss with the patient's girlfriend who is is his closest available advocate who indicates that the patient was a DNR and would not want further life support. - Related Data Home Medications Medication Instructions Recorded Confirmed ALPRAZolam [Xanax] 0.5 mg PO DAILY 05/21/16 11/13/22 Cholecalciferol [Vitamin D3 (25 1,000 unit PO DAILY 03/01/21 11/13/22 Mcg = 1000 Iu)] Multivitamins, Thera [Multivitamin 1 tab PO DAILY 03/01/21 11/13/22 (formulary)] Albuterol Inhaler [Ventolin Hfa 2 puff INHALATION RT-Q4H PRN 08/06/22 11/13/22 Inhaler] Ascorbic Acid [Vitamin C] 500 mg PO DAILY 08/06/22 11/13/22 Fluticasone Propion/Salmeterol 1 puff INHALATION RT-BID 08/06/22 11/13/22 [Wixela 250-50 Inhub] Propranolol LA [Inderal LA] 80 mg PO DAILY 08/06/22 11/13/22 Sildenafil Citrate 50 mg PO DAILY PRN 08/06/22 11/13/22 Previous Rx's Medication Instructions Recorded Furosemide [Lasix] 40 mg PO DAILY 30 Days #30 tab 08/08/22 Spironolactone [Aldactone] 100 mg PO DAILY 30 Days #120 tab 08/08/22 Thiamine [Vitamin B-1] 100 mg PO DAILY tab 08/08/22 Allergies Allergy/AdvReac Type Severity Reaction Status Date / Time No Known Allergies Allergy Verified 11/13/22 13:48 Review of Systems ROS Statement: Those systems with pertinent positive or pertinent negative responses have been documented in the HPI. ROS Other: All systems not noted in ROS Statement are negative. Past Medical History Additional Past Medical History / Comment(s): hx injury to neck- experiencing constant headache, neck, lt shoulder pain with numbness to lt hand and pain lower back, diverticulitis, growth on parotid gland, urticaria. diverticulitis. CHRONIC ITCHING. History of Any Multi-Drug Resistant Organisms: None Reported Past Surgical History: Bowel Resection Additional Past Surgical History / Comment(s): bowel resection with colostomy and then reversal of colostomy, Past Anesthesia/Blood Transfusion Reactions: No Reported Reaction Smoking Status: Current every day smoker - Past Family History Mother Family Medical History: Cancer Additional Family Medical History / Comment(s): liver General Exam General appearance: obtunded Eye exam: Present: other (No corneal reflex, pupils are fixed and dilated) ENT exam: Present: other (Intubated 7.0 ET tube, no gag) Respiratory exam: Present: other (Bilateral breath sounds with BVM) Cardiovascular Exam: Present: other (Faint heart sounds, faint carotid pulse) GI/Abdominal exam: Present: distended Skin exam: Present: other (Jaundice) Course Vital Signs 12/14/23 12/14/23 12/14/23 00:08 00:10 00:30 Pulse Rate 107 H Blood Pressure 80/30 O2 Sat by Pulse 92 L Oximetry Fraction of 100 100 Inspired Oxygen (FIO2) Medical Decision Making - Medical Decision Making Was pt. sent in by a medical professional or institution (, PA, ICE CREAM VAULT WORKER, urgent care, hospital, or care home...) When possible be specific @ -No Did you speak to anyone other than the patient for history (EMS, parent, family, police, friend...)? What history was obtained from this source @ -Paramedics, patient's girlfriend. Did you review nursing and triage notes (agree or disagree)? Why? @ -I reviewed and agree with nursing and triage notes Were old charts reviewed (outside hosp., previous admission, EMS record, old EKG, old radiological studies, urgent care reports/EKG's, care home records)? Report findings @ -No old charts were reviewed Differential Diagnosis: Cardiopulmonary arrest, WI, PE, acidosis, intracranial hemorrhage EKG interpreted by me (3pts min.). @Sinus rhythm low voltage rate of 92, VT interval 185, QRS duration 108, QTc [address] segment elevation X-rays interpreted by me (1pt min.). @ -None done CT interpreted by me (1pt min.). @ -None done U/S interpreted by me (1pt. min.). @ -None done What testing was considered but not performed or refused? (CT, X-rays, U/S, labs)? Why? @ -None What meds were considered but not given or refused? Why? @ -None Did you discuss the management of the patient with other professionals (professionals i.e. Dr., PA, ICE CREAM VAULT WORKER, lab, RT, psych nurse, clinical social worker, trim sawyer, teacher, agricultural extension officer, director of casework department)? Give summary @ -No Was smoking cessation discussed for >3mins.? @ -No Was critical care preformed (if so, how long)? @ -No Were there social determinants of health that impacted care today? How? (Homelessness, low income, unemployed, alcoholism, drug addiction, transportation, low edu. Level, literacy, decrease access to med. care, correction, rehab)? @ -No Was there de-escalation of care discussed even if they declined (Discuss DNR or withdrawal of care, Hospice)? DNR status @ -DNR What co-morbidities impacted this encounter? (DM, HTN, Smoking, COPD, CAD, Cancer, CVA, ARF, Chemo, Hep., AIDS, mental health diagnosis, sleep apnea, morbid obesity)? @ -[Liver cirrhosis, liver failure, previous EtOH abuse Was patient admitted / discharged? Hospital course, mention meds given and route, prescriptions, significant lab abnormalities, going to OR and other pertinent info. @ -58-year-old male presented as out of hospital cardiac arrest. Upon arrival patient is an extremis with hypotension, no spontaneous respirations, vent dependent, no gag, no corneal reflex, no pupillary reflex, pupils are fixed and dilated. Patient's son was contacted by the patient's girlfriend and attempts were made to maintain the patient alive until the son was able to make it to the hospital. Ultimately despite the ventilator and maximal doses of vasopressors the patient passed at 0150. The MD was contacted. Undiagnosed new problem with uncertain prognosis? @ -[No Drug Therapy requiring intensive monitoring for toxicity (Heparin, Nitro, Insulin, Cardizem)? @ -No Were any procedures done? @ -No Diagnosis/symptom? @ -Cardiopulmonary arrest, liver failure Acute, or Chronic, or Acute on Chronic? @Acute Uncomplicated (without systemic symptoms) or Complicated (systemic symptoms)? @ -Default Side effects of treatment? @ -No Exacerbation, Progression, or Severe Exacerbation? @ -No Poses a threat to life or bodily function? How? (Chest pain, [place], WI, pneumonia, PE, COPD, DKA, ARF, appy, cholecystitis, CVA, Diverticulitis, Homicidal, Suicidal, threat to staff... and all critical care pts) @ -[yes, cardiac arrest - Lab Data Result diagrams: 12/14/23 00:05 12/14/23 00:05 Lab Results 12/14/23 12/14/23 12/14/23 Range/Units 00:04 00:05 00:05 WBC 3.7 L (3.8-10.6) k/uL RBC 2.43 L (4.30-5.90) m/uL Hgb 9.2 L (13.0-17.5) gm/dL Hct 31.1 L (39.0-53.0) % MCV 128.1 H (80.0-100.0) fL MCH 37.9 H (25.0-35.0) pg MCHC 29.6 L (31.0-37.0) g/dL RDW 15.7 H (11.5-15.5) % Plt Count 110 L (150-450) k/uL MPV 8.8 Neutrophils % (Manual) 19 % Band Neuts % (Manual) 25 % Lymphocytes % (Manual) 39 % Eosinophils % (Manual) 11 % Metamyelocytes % 6 % Neutrophils # (Manual) 1.60 (1.3-7.7) k/uL Lymphocytes # (Manual) 1.44 (1.0-4.8) k/uL Eosinophils # (Manual) 0.41 (0-0.7) k/uL Metamyelocytes # (Man) 0.22 H (0) k/uL Nucleated RBCs 1 H (0-0) /100 WBC Differential Comment Manual Slide Review Performed Hypochromasia Marked Poikilocytosis (manual Present Anisocytosis (manual) Present Macrocytosis Marked A Crenated Cell Present Fragmented RBCs Present PT 29.5 H (10.0-12.5) sec INR 3.0 H (<1.2) APTT 81.0 H (22.0-30.0) sec Sodium (137-145) mmol/L Potassium (3.5-5.1) mmol/L Chloride (98-107) mmol/L Carbon Dioxide (22-30) mmol/L Anion Gap mmol/L BUN (9-20) mg/dL Creatinine (0.66-1.25) mg/dL Est GFR (CKD-EPI)AfAm (>60 ml/min/1.73 sqM) Est GFR (CKD-EPI)NonAf (>60 ml/min/1.73 sqM) Glucose (74-99) mg/dL POC Glucose (mg/dL) (70-110) mg/dL POC Glu Hvac/R Instructor ID Plasma Lactic Acid Samson (0.7-2.0) mmol/L Calcium (8.4-10.2) mg/dL Magnesium (1.6-2.3) mg/dL Total Bilirubin (0.2-1.3) mg/dL AST (17-59) U/L ALT (4-49) U/L Alkaline Phosphatase (38-126) U/L Troponin I 0.022 (0.000-0.034) ng/mL Total Protein (6.3-8.2) g/dL Albumin (3.5-5.0) g/dL 12/14/23 12/14/23 12/14/23 Range/Units 00:05 00:05 00:14 WBC (3.8-10.6) k/uL RBC (4.30-5.90) m/uL Hgb (13.0-17.5) gm/dL Hct (39.0-53.0) % MCV (80.0-100.0) fL MCH (25.0-35.0) pg MCHC (31.0-37.0) g/dL RDW (11.5-15.5) % Plt Count (150-450) k/uL MPV Neutrophils % (Manual) % Band Neuts % (Manual) % Lymphocytes % (Manual) % Eosinophils % (Manual) % Metamyelocytes % % Neutrophils # (Manual) (1.3-7.7) k/uL Lymphocytes # (Manual) (1.0-4.8) k/uL Eosinophils # (Manual) (0-0.7) k/uL Metamyelocytes # (Man) (0) k/uL Nucleated RBCs (0-0) /100 WBC Differential Comment Manual Slide Review Hypochromasia Poikilocytosis (manual Anisocytosis (manual) Macrocytosis Crenated Cell Fragmented RBCs PT (10.0-12.5) sec INR (<1.2) APTT (22.0-30.0) sec Sodium 126 L (137-145) mmol/L Potassium 4.6 (3.5-5.1) mmol/L Chloride 103 (98-107) mmol/L Carbon Dioxide 8 L* (22-30) mmol/L Anion Gap 15 mmol/L BUN 13 (9-20) mg/dL Creatinine 1.40 H (0.66-1.25) mg/dL Est GFR (CKD-EPI)AfAm 63 (>60 ml/min/1.73 sqM) Est GFR (CKD-EPI)NonAf 54 (>60 ml/min/1.73 sqM) Glucose 70 L (74-99) mg/dL POC Glucose (mg/dL) 78 (70-110) mg/dL POC Glu Hvac/R Instructor ID Emily Saravia Plasma Lactic Acid Samson 10.8 H* (0.7-2.0) mmol/L Calcium 8.2 L (8.4-10.2) mg/dL Magnesium 1.9 (1.6-2.3) mg/dL Total Bilirubin 7.7 H (0.2-1.3) mg/dL AST 57 (17-59) U/L ALT 29 (4-49) U/L Alkaline Phosphatase 81 (38-126) U/L Troponin I (0.000-0.034) ng/mL Total Protein 5.3 L (6.3-8.2) g/dL Albumin 2.0 L (3.5-5.0) g/dL Critical Care Time Critical Care Time: Yes Total Critical Care Time: 35 Disposition Clinical Impression: Cardiac arrest Disposition: Condition: Undetermined Is patient prescribed a controlled substance at d/c from ED?: No Referrals: Courtney Delgado MD [Primary Care Provider] - 1-2 days Time of Disposition: 01:50 Preliminary Cause of : Liver failure, cardiopulmonary arrest
[2023-12-14 00:50] LABS: African American GFR (CKD) 63 (>60 ml/min/1.73 sqM); Anion Gap 15 mmol/L; Blood Urea Nitrogen 13 mg/dL (9-20); Calcium 8.2 mg/dL (8.4-10.2); Chloride 103 mmol/L (98-107); Glucose 70 mg/dL (74-99); Non-African American GFR(CKD) 54 (>60 ml/min/1.73 sqM); Sodium 126 mmol/L (137-145); Total Bilirubin 7.7 mg/dL (0.2-1.3); Total Protein 5.3 g/dL (6.3-8.2)
[2023-12-14 00:57] LABS: ALT 29 U/L (4-49)
[2023-12-14] MEDS: MORPHINE SULFATE 4 MG/ML SYRINGE IVP STA (01:09)
[2023-12-14] MEDS: SODIUM CHLORIDE 0.9% 1,000 ML IV ONE (01:14)
[2023-12-14 01:23] LABS: AST 57 U/L (17-59); Alkaline Phosphatase 81 U/L (38-126); Carbon Dioxide 8 mmol/L (22-30); Magnesium 1.9 mg/dL (1.6-2.3); Potassium 4.6 mmol/L (3.5-5.1)
[2023-12-14 01:31] LABS: Band Neutrophils % 25 %; Eosinophils # (M) 0.41 k/uL (0-0.7); Lymphocytes # (M) 1.44 k/uL (1.0-4.8); Metamyelocytes # (M) 0.22 k/uL (0); Metamyelocytes % 6 %; Neutrophils % (M) 19 %; Nucleated Red Blood Cells 1 /100 WBC (0-0); Total Cells Counted 200
[2023-12-14 01:32] LABS: Anisocytosis (M) Present; Poikilocytosis (M) Present
[2023-12-14 01:33] LABS: Crenated RBC Present; RBC Fragments Present
[2023-12-14 01:37] LABS: Prothrombin Time 29.5 sec (10.0-12.5)
[2023-12-14] MEDS: IPRATROPIUM-ALBUTEROL 3 ML NEB INHALATION SCH (02:00)
[2023-12-14 05:48] VITALS: TEMP 97.5
[2023-12-14 07:03] VITALS: RESP 16
[2023-12-14 07:05] VITALS: BP 40/20
[2023-12-14 07:06] VITALS: PULSE 30
== END 2023-12-14 05:40 | disposition expired ==
LOC: EC 00:05
DX: I46.9 Cardiac arrest, cause unspecified (principal); K72.90 Hepatic failure, unspecified without coma; F17.200 Nicotine dependence, unspecified, uncomplicated
CPT/HCPCS: 36415; 94002; 93005; 80053; 83605; 83735; 84484; 85025; 85610; 85730; 87070; 87205; 71045; 99291; 96365; 96375; J2270